=== PATIENT | male | born 1975 | race Caucasian/White ===

== ENCOUNTER 2018-08-31 17:18 | Emergency (ER) | payer MEDICAID ==
[2018-08-31] MEDS: LORAZEPAM 1 MG TAB PO (20:03)
[2018-08-31] MEDS: IBUPROFEN 800 MG TAB PO (20:04)
== END 2018-08-31 21:14 | disposition home or self-care (01) ==
LOC: FTE 17:18
DX: S20.211A Contusion of right front wall of thorax, initial encounter (principal); V49.40XA Driver injured in collision with unspecified motor vehicles in traffic accident, initial encounter
CPT/HCPCS: 71046; 99283-25